=== PATIENT | male | born 1950 | race Caucasian/White ===

== ENCOUNTER 2021-10-13 16:41 | Emergency (ER) | payer OTHER ==
[~2021-10-13] VITALS: Ht 180.3 cm; Wt 101.1 kg
[2021-10-13 17:15] VITALS: BP 228/137
--- NOTE | 2021-10-13 17:21 | PHYS DOC ---
Past Medical History Past Medical History: Hypertension (NEELIMA AREVALO APRN) General Adult EDM: Chief Complaint: Palpitations HPI: HPI: Patient is a 70-year-old male who presents today with atrial fibs. Patient was seen by [facility] primary care nurse practitioner with Dr. Sarah Tavarez's office, it was noted upon her assessment that the patient had an irregular heartbeat, an EKG was done at the office which showed the patient to be in atrial fibs at a rate of 90-100, patient was also found to be hypertensive in the office, it was advised that the patient come to the emergency department by the nurse practitioner for further evaluation and management of the atrial fibs and hypertension. Patient states that he had COVID approximately 4 weeks ago, he was seen at [facility] primary [facility] in the urgent care he states that he had a fever upon arrival there at 103 at that time, he said since that time he decided that he needed to have a physical since he had not 1 had 1 in several years so he returned to be seen by Dr. Tavarez's nurse practitioner. Patient states that he does have a past medical history of hypertension, he states that it was prescribed by Dr. Tavarez's office a number of years ago, he said that he took it for a while and then due to insurance cost he stopped taking it. Patient states that he did does not smoke, he does state that he drinks on a daily basis, he does not do any drugs. Patient denies chest pain, shortness of breath, nausea vomiting, or headache. (NEELIMA AREVALO APRN) Review of Systems: Review of Systems: Constitutional: Denies fever or chills. [] Eyes: Denies change in visual acuity. [] HENT: Denies nasal congestion or sore throat. [] Respiratory: Denies cough or shortness of breath. [] Cardiovascular: Atrial fib denies chest pain or edema. [] GI: Denies abdominal pain, nausea, vomiting, bloody stools or diarrhea. [] : Denies dysuria. [] Musculoskeletal: Denies back pain or joint pain. [] Integument: Denies rash. [] Neurologic: Denies headache, focal weakness or sensory changes. [] Endocrine: Denies polyuria or polydipsia. [] Lymphatic: Denies swollen glands. [] Psychiatric: Denies depression or anxiety. [] (NEELIMA AREVALO APRN) Heart Score: C/O Chest Pain: No Risk Factors: Risk Factors: DM, Current or recent (<one month) smoker, HTN, HLP, family history of CAD, obesity. Risk Scores: Score 0 - 3: 2.5% MACE over next 6 weeks - Discharge Home Score 4 - 6: 20.3% MACE over next 6 weeks - Admit for Clinical Observation Score 7 - 10: 72.7% MACE over next 6 weeks - Early Invasive Strategies (NEELIMA AREVALO APRN) Allergies: Allergies: Allergies Coded Allergies Type Severity Reaction Last Updated Verified No Known Drug Allergies 10/13/21 No (NEELIMA AREVALO APRN) Physical Exam: PE: Constitutional: Well developed, well nourished, no acute distress, non-toxic appearance. [] HENT: Normocephalic, atraumatic, bilateral external ears normal, oropharynx moist, no oral exudates, nose normal. [] Eyes: PERRLA, EOMI, conjunctiva normal, no discharge. [] Neck: Normal range of motion, no tenderness, supple, no stridor. [] Cardiovascular:Heart rate IRREGULAR RATE 90-110. Lungs & Thorax: Bilateral breath sounds clear to auscultation [] Abdomen: Bowel sounds normal, soft, no tenderness, no masses, no pulsatile masses. [] Skin: Warm, dry, no erythema, no rash. [] Back: No tenderness, no CVA tenderness. [] Extremities: No tenderness, no cyanosis, no clubbing, ROM intact, no edema. [] Neurologic: Alert and oriented X 3, normal motor function, normal sensory function, no focal deficits noted. [] Psychologic: Affect normal, judgement normal, mood normal. [] (NEELIMA AREVALO ALUMINUM CONTAINER TESTER) Current Patient Data: Vital Signs: Vital Signs Date Time Temp Pulse Resp B/P (MAP) Pulse Ox O2 Delivery O2 Flow Rate FiO2 10/13/21 17:15 102 20 228/137 (167) 98 Room Air 10/13/21 16:48 98.1 105 18 226/148 (174) 99 Room Air 98.1 (NEELIMA AREVALO APRN) EKG: EKG: EKG done at [address] Roberts at 1701 shows atrial fibs at a rate of 102 no ectopy noted no STEMI (NEELIMA AREVALO APRN) Radiology/Procedures: Radiology/Procedures: [] (NEELIMA AREVALO APRN) Course & Med Decision Making: Course & Med Decision Making Pertinent Labs and Imaging studies reviewed. (See chart for details) 1705 I spoke to patient at length regarding the plan of care the fact that the patient has a new onset of atrial fibs and a blood pressure of 220/140s that he will be admitted for consult to cardiology so they may manage his hypertension and his new onset A. fib, patient will need to be placed on anticoagulation therapy as well as did be given a medication to lower his blood pressure. I did tell him that this does not occur in a 2-hour ER visit that this does require admission and for specialist to be seeing the patient. Patient states that at this time he is requesting to leave, he states that at this time he cannot stay he was under the impression from his primary care doctor's office that he would be given an IV will be given some medicine and be sent home within the time of the ER visit. Patient was told that he if he does leave AGAINST MEDICAL ADVICE that his condition can worsen and lead to permanent disability, stroke, heart attack, or even . Patient verbalizes understanding of this and still wishes to leave. 1730 Dr. Roberts's at the bedside to speak to patient and patient continues to decline her services here and wishes to leave AGAINST MEDICAL ADVICE. (NEELIMA AREVALO APRN) [place] Disclaimer: Petra Disclaimer: This electronic medical record was generated, in whole or in part, using a voice recognition dictation system. (NEELIMA AREVALO APRN) Departure Departure Impression: Primary Impression: Atrial fibrillation Qualified Codes: I48.91 - Unspecified atrial fibrillation Disposition: LEFT AGAINST MEDICAL ADVICE Condition: GUARDED Attending Co-Sign The patient was seen and interviewed as well as examined at the bedside. The chart was reviewed. The case was discussed. Agree with the plan of care. (PROSPER ROBERTS DO) NEELIMA AREVALO APRN October 13, 2021 17:21 PROSPER ROBERTS DO October 14, 2021 05:49
--- NOTE | 2021-10-14 09:00 | EKG ---
[facility] [address] [place] [address] Test Date: 2021-10-13 Test Time: 16:54:35 Pat Name: YOUSUF SOLORZANO Department: Room: Gender: M Fitter Mechanic: : 1950 Requested By: NEELIMA AREVALO Order Number: [id number] Reading MD: Liam Baig MD Measurements Intervals [place] Rate: 102 P: MI: QRS: -5 QRSD: 82 T: 144 QT: 360 QTc: 474 Interpretive Statements Atrial fibrillation with controlled ventricular response NON-SPECIFIC ST/T CHANGES Electronically Signed On 10-14-2021 15:10:26 CDT by Liam Baig MD
== END 2021-10-13 16:48 | disposition left against medical advice (07) ==
LOC: ER 16:41
DX: I48.91 Unspecified atrial fibrillation (principal); I10 Essential (primary) hypertension
CPT/HCPCS: 93005; 99283